=== PATIENT | male | born 1955 | race American Indian/Alaskan Native ===

== ENCOUNTER 2018-02-05 08:33 | Outpatient (CLI) | payer BC ==
--- NOTE | 2018-02-05 13:50 | Cat Scan Report ---
CT abdomen and pelvis with contrast: Prostate malignancy. Transverse images are obtained from the lower chest to the ischium with coronal and sagittal 2-D reformatted images. Oral contrast was administered. The visualized lung bases are clear. Multiple low attenuation circumscribed masses are identified in the liver the largest measuring 3.4 cm. The abdominal and retroperitoneal organs otherwise appear unremarkable. The bowel is unremarkable with most of the contrast being in the distal ileum and colon. No mesenteric or periaortic adenopathy identified. Sections carried into the pelvis appeared indicate an extremely small or removed prostate. No evidence of metastatic bone disease. Impression: 1. Numerous hepatic cysts. 2. No metastatic foci identified.
--- NOTE | 2018-02-05 13:52 | Nuclear Medicine Report ---
Bone scan: Prostate cancer. Following injection of radionuclide whole-body images are obtained approximately 3 hours. There is normal activity in the urinary tract and soft tissues. There is a good blood background ratio. No abnormal tracer uptake is identified about the ankles. Several scattered foci of increased uptake are identified in both feet and ankles. Impression: No evidence of metastatic disease.
== END 2018-02-05 08:34 | disposition home or self-care (01) ==
LOC: NM 08:33
PROVIDERS: ATTEND Urology
DX: C61 Malignant neoplasm of prostate (principal); K76.89 Other specified diseases of liver; E03.9 Hypothyroidism, unspecified
CPT/HCPCS: 74176; 78306; A9503